=== PATIENT | female | born 1995 | race African-American/Black ===

== ENCOUNTER 2017-11-28 22:58 | Emergency (ER) | payer MEDICAID, OTHER ==
[~2017-11-28 22:58] MED LIST: NORG1TAB37 PO; VITAMINE
== END 2017-11-29 02:39 | disposition left against medical advice (07) ==
LOC: ER 22:58
DX: R10.9 Unspecified abdominal pain (principal); Z53.21 Procedure and treatment not carried out due to patient leaving prior to being seen by health care provider

== ENCOUNTER 2018-03-14 10:23 | Emergency (ER) | payer OTHER ==
[~2018-03-14] VITALS: Ht 175.3 cm; Wt 74.0 kg
[2018-03-14 10:27] VITALS: BP 113/64
[2018-03-14] MEDS ORDERED: KETOROLAC 60MG/2ML VIAL IM ONE (11:30)
== END 2018-03-17 10:09 | disposition home or self-care (01) ==
LOC: ER 11:01
DX: S62.001A Unspecified fracture of navicular [scaphoid] bone of right wrist, initial encounter for closed fracture (principal); F17.200 Nicotine dependence, unspecified, uncomplicated; X50.0XXA Overexertion from strenuous movement or load, initial encounter; Y93.89 Activity, other specified; Y92.89 Other specified places as the place of occurrence of the external cause; Y99.8 Other external cause status
CPT/HCPCS: 29125; 73110; 73130; 81025; 96372; 99284; J1885